=== PATIENT | female | born 1950 | race Caucasian/White ===

== ENCOUNTER 2020-03-29 12:09 | Emergency (ER) | payer BC, MEDICARE ==
--- NOTE | 2020-03-29 12:26 | ER Document Report ---
ED Medical Screen (RME) - General Chief Complaint: Lower Abdominal Pain Stated Complaint: VAGINAL PROBLEM Time Seen by Provider: 03/29/20 12:21 Notes: HPI: 69-year-old female presenting for discomfort with urination over the last 2 weeks. Had a Bactrim prescription previously from a sinus infection that she took for 7 days which alleviated some symptoms but then they came back when she stopped the antibiotic. Patient has had increasing pelvic pressure and discomfort over the last week. Patient states "I feel like there something coming out of my vagina". She went to an immediate care yesterday and was prescribed Macrobid but states that the symptoms are worse today. No fever no vomiting no vaginal discharge or bleeding PHYSICAL EXAMINATION: Very mild tenderness over the suprapubic region on palpation. exam deferred in triage. No CVA tenderness I have greeted and performed a rapid initial assessment of this patient. A comprehensive ED assessment and evaluation of the patient, analysis of test results and completion of medical decision making process will be conducted by an additional ED providers. Please note that clinical decision making for this patient was made during the 2019 pandemic of novel coronavirus which caused a significant strain on the healthcare system including at this particular facility. Criteria for admission discharge and level of care decisions as well as treatment decisions have necessarily changed - Related Data Allergies/Adverse Reactions: No Known Allergies Allergy (Verified 03/29/20 12:18) Home Medications: amitiza. advair. zyrtec. vitamins. calcium. zinc. magnesium Past Medical History - Social History Chew tobacco use (# tins/day): No Frequency of alcohol use: Occasional Drug Abuse: None Physical Exam - Vital signs Vitals: Temp Pulse Resp BP Pulse Ox 97.4 F 72 16 142/79 H 98 03/29/20 12:16 03/29/20 12:16 03/29/20 12:16 03/29/20 12:16 03/29/20 12:16 Course - Vital Signs Vital signs: Temp Pulse Resp BP Pulse Ox 97.4 F 72 16 142/79 H 98 03/29/20 12:16 03/29/20 12:16 03/29/20 12:16 03/29/20 12:16 03/29/20 12:16
[2020-03-29 12:57] LABS: ABSOLUTE LYMPHOCYTES (AUTO) 2.1 10^3/uL (0.5-4.7); ABSOLUTE MONOCYTES (AUTO) 0.4 10^3/uL (0.1-1.4); ABSOLUTE NEUT (AUTO) 6.8 10^3/uL (1.7-8.2); BASOPHILS % (AUTO) 0.2 % (0-2); EOSINOPHILS % (AUTO) 0.3 % (0-6); HEMATOCRIT 41.5 % (36.0-47.0); HEMOGLOBIN 14.1 g/dL (12.0-15.5); LYMPHOCYTES % (AUTO) 22.5 % (13-45); MEAN CORPUSCULAR HEMOGLOBIN 30.5 pg (27.0-33.4); MEAN CORPUSCULAR VOLUME 90 fl (80-97); MONOCYTES % (AUTO) 4.3 % (3-13); PLATELET COUNT 272 10^3/uL (150-450); RED BLOOD COUNT 4.63 10^6/uL (3.72-5.28); RED CELL DISTRIBUTION WIDTH 13.9 % (11.5-14.0); SEGMENTED NEUTROPHILS % (AUTO) 72.7 % (42-78); TOTAL CELLS COUNTED % (AUTO) 100 %; WHITE BLOOD COUNT 9.4 10^3/uL (4.0-10.5)
[2020-03-29 13:04] LABS: APPEARANCE,URINE CLEAR; BILIRUBIN,URINE NEGATIVE (NEGATIVE); COLOR,URINE YELLOW; GLUCOSE, URINE NEGATIVE (NEGATIVE); KETONES,URINE NEGATIVE (NEGATIVE); LEUKOCYTE ESTERASE,URINE NEGATIVE (NEGATIVE); NITRITE,URINE NEGATIVE (NEGATIVE); PROTEIN,URINE NEGATIVE (NEGATIVE); URINE SPECIFIC GRAVITY 1.011; UROBILINOGEN,URINE NEGATIVE mg/dL (<2.0)
[2020-03-29 13:20] LABS: ALBUMIN 4.5 g/dL (3.5-5.0); ALKALINE PHOSPHATASE 73 U/L (38-126); ANION GAP 5 (5-19); ASPARTATE AMINO TRANSFERASE 29 U/L (14-36); BILIRUBIN,DIRECT 0.2 mg/dL (0.0-0.4); BILIRUBIN,TOTAL 0.5 mg/dL (0.2-1.3); BLOOD UREA NITROGEN 19 mg/dL (7-20); CALCIUM 9.7 mg/dL (8.4-10.2); CARBON DIOXIDE 31 mmol/L (22-30); CHLORIDE 102 mmol/L (98-107); GLUCOSE 115 mg/dL (75-110)
--- NOTE | 2020-03-29 14:44 | RADIOLOGY REPORT (SQ) ---
EXAM DESCRIPTION: CT ABD/PELVIS WITH IV ONLY IMAGES COMPLETED DATE/TIME: 03/29/2020 11:29 am REASON FOR STUDY: abdominal pain COMPARISON: None. TECHNIQUE: CT scan of the abdomen and pelvis performed using helical scanning technique with dynamic intravenous contrast injection. No oral contrast. Images reviewed with lung, soft tissue, and bone windows. Reconstructed coronal and sagittal MPR images reviewed. Delayed images for evaluation of the urinary system also acquired. All images stored on PACS. All CT scanners at this facility use dose modulation, iterative reconstruction, and/or weight based d osing when appropriate to reduce radiation dose to as low as reasonably achievable (ALARA). [facility]: Dose Right [facility]: CareDose [facility]: Dose Right [facility]: Teradose 4D [facility]: [facility] CONTRAST TYPE AND DOSE: contrast/concentration: Isovue 350.00 mmol/ml; Total Contrast Delivered: 78. 0 ml; Total Saline Delivered: 46.0 ml RENAL FUNCTION: Creatinine 0.58 RADIATION DOSE: CT Rad equipment meets quality standard of care and radiation dose reduction techniq ues were employed. CTDIvol: 6.8 - 9.3 mGy. DLP: 838 mGy-cm.. LIMITATIONS: Artifact from left hip prosthesis obscures detail of adjacent structures. FINDINGS: LOWER CHEST: Right pericardial cystic structure is partially imaged and likely a benign de velopmental finding. This measures 4.7 x 4.5 cm. If indicated, dedicated imaging of the chest could be performed for complete assessment. Some mild basilar atelectasis or scarring. LIVER: Multiple hypodense liver lesions are incompletely characterized but likely represent benign cy sts. SPLEEN: Normal size. No focal lesions. PANCREAS: No masses. No significant calcifications. No adjacent inflammation or peripancreatic fluid collections. Pancreatic duct not dilated. GALLBLADDER: Surgically absent. ADRENAL GLANDS: No significant masses or asymmetry. RIGHT KIDNEY AND URETER: No solid masses. No significant calcifications. No hydronephrosis or hyd roureter. LEFT KIDNEY AND URETER: No solid masses. No significant calcifications. No hydronephrosis or hydr oureter. AORTA AND VESSELS: No aneurysm. No dissection. Renal arteries, SMA, celiac without stenosis. RETROPERITONEUM: No retroperitoneal adenopathy, hemorrhage or masses. BOWEL AND PERITONEAL CAVITY: No masses or inflammatory changes. No free fluid or peritoneal masses. Colon diverticulosis. No bowel dilatation. Moderate stool in the colon. APPENDIX: Surgically absent. PELVIS: Portions of the pelvis are obscured due to artifact from left hip prosthesis. No gross abnor mality. ABDOMINAL WALL: No masses. No hernias. BONES: Status post left hip arthroplasty. No destructive bone lesions. OTHER: No other significant finding. IMPRESSION: 1. Portions of the pelvis are partially obscured due to artifact from left hip prosthes is. No acute abnormality identified. 2. Moderate stool in the colon. No bowel obstruction. 3. Colon diverticulosis. 4. Partially visualized right pericardial cyst. TECHNICAL DOCUMENTATION: JOB ID: [id number] Quality ID # [id number]: Final reports with documentation of one or more dose reduction techniques (e.g., Au tomated exposure control, adjustment of the mA and/or kV according to patient size, use of iterative reconstruction technique) 2010 [employer]- All Rights Reserved Reading location - IP/workstation name: [email or web address]
[2020-03-29] MEDS ORDERED: KETOROLAC TROMETHAMINE INJ/PF 30 MG/1 ML SDV IV ONE (16:29)
[2020-03-29 16:33] LABS: BACTERIA (WET MOUNT) 3+ BACTERIA SEEN; EPITHELIALS (WET MOUNT) 3+ EPITHELIALS SEEN; RBCS (WET MOUNT) NO RBCS SEEN; T.VAGINALIS (WET MOUNT) NO TRICHOMONAS SEEN; WBCS (WET MOUNT) NO WBCS SEEN; YEAST (WET MOUNT) NO YEAST SEEN
--- NOTE | 2020-03-29 17:28 | ER Document Report ---
ED GI/ - General Chief Complaint: Lower Abdominal Pain Stated Complaint: VAGINAL PROBLEM Time Seen by Provider: 03/29/20 12:21 Primary Care Provider: CLIF COLEMAN MD [ACTIVE STAFF] - Follow up as needed - HPI Notes: 03/29/20 18:44 69-year-old female presents to ED for evaluation of lower pelvic discomfort for the last several days. Patient states that she has been seen at urgent care and was given a course of antibiotics for management. Reports that she was recently changed over to Macrobid and this did not appear to improve her symptoms. Notes that she feels as though she has increased pelvic pressure when she urinates as well as moves her bowels. She states it feels irritated in this region. Denies any nausea or vomiting. Denies abdominal pain. Denies fever or chills. Denies pain into the. Patient does have some white vaginal discharge. - Related Data Allergies/Adverse Reactions: No Known Allergies Allergy (Verified 03/29/20 12:18) Home Medications: amitiza. advair. zyrtec. vitamins. calcium. zinc. magnesium Past Medical History - Social History Smoking Status: Current Some Day Smoker Chew tobacco use (# tins/day): No Frequency of alcohol use: Occasional Drug Abuse: None Family History: None Patient has homicidal ideation: No Past Surgical History: Reports: Hx Section Review of Systems - Review of Systems Notes: Constitutional: Negative for fever. HENT: Negative for sore throat. Eyes: Negative for visual changes. Cardiovascular: Negative for chest pain. Respiratory: Negative for shortness of breath. Gastrointestinal: Negative for abdominal pain, vomiting or diarrhea. Genitourinary: Negative for dysuria. + for pelvic pain. Musculoskeletal: Negative for back pain. Skin: Negative for rash. Neurological: Negative for headaches, weakness or numbness. 10 point ROS negative except as marked above and in HPI. Physical Exam - Vital signs Vitals: Temp Pulse Resp BP Pulse Ox 97.4 F 72 16 142/79 H 98 03/29/20 12:16 03/29/20 12:16 03/29/20 12:16 03/29/20 12:16 03/29/20 12:16 General: No acute distress. Alert and oriented x3. Sitting comfortably in a stretcher. Skin: No jaundice, pallor, petechiae, or rashes. Warm and dry. Heart: Regular rate and rhythm. S1,S2. No murmurs, rubs, or gallops. Lungs: Clear to ausculation bilaterally. No wheezes, rhonchi, rales. Equal chest expansion. No retractions. Abdomen: Soft, nontender to palpation, nondistended. Positive bowel sounds in all 4 quadrants. No masses. No CVA tenderness bilaterally. Genitourinary performed with female director speech present: External vagina without rashes or lesion. Speculum was inserted, cultures were taken. Cervical os closed without lesion with mild erythema and discharge. Cervix located in distal canal of vagina. No blood or masses in the vaginal vault. No cervical motion tenderness. No adnexal tenderness or masses. Back: No midline spinal TTP. No paraspinous muscular TTP. Neuro: GCS 15. Moving all extremities without discomfort. Psych: Mood and affect appropriate. Course - Re-evaluation Re-evalutation: 03/29/20 19:03 69-year-old female presents to ED for evaluation of pelvic pain. Patient was evaluated with CBC, CMP, UA, lipase, and WET prep. Lab work was found to be notable for bacterial vaginosis on wet prep. Patient further evaluated with CT scan of the abdomen and pelvis which was unremarkable. On pelvic exam, patient does have her cervix in the distal vaginal canal. Concern for uterine prolapse. To consult to DIABETES TRAINER and spoke with Dr. Coleman who recommends patient be seen as an outpatient in the clinic this week. I did also discuss with patient that I will start her on a course of Flagyl. Patient treated symptomatically with pain management. Patient understands to follow up with primary care physician as well as DIABETES TRAINER. Patient understands indications to return to the ER. Patient is agreeable with this plan. 03/29/20 19:04 - Vital Signs Vital signs: Temp Pulse Resp BP Pulse Ox 97.3 F 67 18 153/93 H 97 03/29/20 18:01 03/29/20 17:51 03/29/20 17:51 03/29/20 17:51 03/29/20 17:51 - Laboratory Results Result Diagrams: 03/29/20 12:27 03/29/20 12:27 Laboratory Results Interpreted: 03/29/20 12:27 Carbon Dioxide 31 H Glucose 115 H Critical Laboratory Results Reviewed: No Critical Results - Radiology Results Critical Radiology Results Reviewed: No Critical Results Discharge - Discharge Clinical Impression: Bacterial vaginosis, Uterine prolapse without vaginal wall prolapse Condition: Stable Disposition: HOME, SELF-CARE Prescriptions: Ketorolac Tromethamine [Toradol 10 mg Tablet] 10 mg PO Q8HP PRN #15 tablet PRN Reason: Referrals: CLIF COLEMAN MD [ACTIVE STAFF] - Follow up as needed
[2020-03-29 18:01] VITALS: BP 153/93
== END 2020-03-29 17:55 | disposition home or self-care (01) ==
LOC: ER 12:09
DX: N76.0 Acute vaginitis (principal); B96.89 Other specified bacterial agents as the cause of diseases classified elsewhere; N81.4 Uterovaginal prolapse, unspecified; Q24.8 Other specified congenital malformations of heart; K57.30 Diverticulosis of large intestine without perforation or abscess without bleeding; F17.200 Nicotine dependence, unspecified, uncomplicated; Z79.899 Other long term (current) drug therapy; Z79.51 Long term (current) use of inhaled steroids
CPT/HCPCS: 99285; 96374; 36415; 87086; 87210; 85025; 80053; 81001; 74177; J1885

== ENCOUNTER 2020-04-02 10:15 | Emergency (ER) | payer MEDICARE ==
[2020-04-02 11:39] LABS: APPEARANCE,URINE CLEAR; BILIRUBIN,URINE NEGATIVE (NEGATIVE); COLOR,URINE STRAW; GLUCOSE, URINE NEGATIVE (NEGATIVE); KETONES,URINE NEGATIVE (NEGATIVE); LEUKOCYTE ESTERASE,URINE NEGATIVE (NEGATIVE); NITRITE,URINE NEGATIVE (NEGATIVE); PROTEIN,URINE NEGATIVE (NEGATIVE); URINE SPECIFIC GRAVITY 1.005; UROBILINOGEN,URINE NEGATIVE mg/dL (<2.0)
[2020-04-02] MEDS ORDERED: CEFTRIAXONE 1 GM/D5W RTU 1 GM/50 ML RTUPB IV ONE (12:26)
[2020-04-02] MEDS ORDERED: AZITHROMYCIN INJ 500 MG VIAL IV ONE (12:26)
[2020-04-02] MEDS ORDERED: NORMAL SALINE 1000 ML 1,000 ML IV ONE (12:27)
[2020-04-02 12:38] VITALS: BP 138/87
--- NOTE | 2020-04-02 13:41 | ER Document Report ---
Entered by MERRITT PETERSON SCRIBE 04/02/20 1057 Acting as scribe for:HALI KELLEY MD ED GI/ - General Chief Complaint: Urinary Problem Stated Complaint: URINARY ISSUE Mode of Arrival: Ambulatory Information source: Patient Notes: This 69 year old female patient presents to the ED today with complaints of acute urinary retention that started this morning. Patient states that she has b een dealing with urinary symptoms including urinary urgency and frequency for the past x2.5 weeks and has been tested for an UTI x3 times with negative results. She now reports burning with urination, urethral pain, and an inability to completely empty her bladder. She notes associated pelvic pain. She was seen her on 03/29 and diagnosed with bacterial vaginosis and uterine prolapse. She states that she followed up with Dr. Jerez at [facility] on 03/30, had a pelvic exam, and was told that it was her bladder that was enlarged and that she did not have uterine prolapse. She was started on a course of Levaquin, currently on day four. She reports no change with the antibiotics. She is also pending a referral to urology. Denies fever, chills, abdominal distension, or flank pain. - Related Data Allergies/Adverse Reactions: No Known Allergies Allergy (Verified 04/02/20 11:01) Past Medical History - General Information source: Patient - Social History Smoking Status: Unknown if Ever Smoked Smoking Education Provided: No Lives with: Spouse/Significant other Family History: Reviewed & Not Pertinent Past Surgical History: Reports: Hx Section - x2, Hx Cholecystectomy Review of Systems - Review of Systems Constitutional: See HPI. denies: Chills, Fever EENT: No symptoms reported Cardiovascular: No symptoms reported Respiratory: No symptoms reported Gastrointestinal: See HPI, Abdominal pain. denies: Abdomen distended Genitourinary: See HPI, Burning, Pain, Urgency, Retention. denies: Flank pain Female Genitourinary: No symptoms reported Musculoskeletal: No symptoms reported Skin: No symptoms reported Hematologic/Lymphatic: No symptoms reported Neurological/Psychological: No symptoms reported -: Yes All other systems reviewed and negative Physical Exam - Vital signs Vitals: Temp Pulse Resp BP Pulse Ox 97.4 F 62 18 147/89 H 99 04/02/20 10:34 04/02/20 10:34 04/02/20 10:34 04/02/20 10:34 04/02/20 10:34 - General General appearance: Alert In distress: None - HEENT Head: Normocephalic, Atraumatic Eyes: Normal Extraocular movements intact: Yes Pupils: PERRL Neck: Normal, Supple - Respiratory Respiratory status: No respiratory distress Chest status: Nontender Breath sounds: Normal Chest palpation: Normal - Cardiovascular Rhythm: Regular Heart sounds: Normal auscultation Murmur: No - Abdominal Inspection: Normal Distension: No distension Bowel sounds: Normal Tenderness: Tender - Suprapubic and pelvic tenderness to palpation. No: Rebound Organomegaly: No organomegaly - Genitourinary Notes: Deferred per patient - Back Back: Normal, Nontender. No: CVA tenderness - Extremities General upper extremity: Normal inspection General lower extremity: Normal inspection. No: Edema - Neurological Neuro grossly intact: Yes Orientation: AAOx4 [place] Coma Scale Eye Opening: Spontaneous [place] Coma Scale Verbal: Oriented [place] Coma Scale Motor: Obeys Commands Ky[place] Coma Scale Total: 15 - Psychological Associated symptoms: Normal affect, Normal mood - Skin Skin Temperature: Warm Skin Moisture: Dry Skin Color: Normal Course - Re-evaluation Re-evalutation: 04/02/20 13:31 Patient voided 200 mL of urine prior to a bladder scan. Bladder scan performed and shows patient has retention of 200 mL of urine in her bladder. Patient presents today after being in the emergency department on March 29, followed up with within days and now returns to the emergency department today because she still has urethral discomfort with painful voiding as well as a burning pain and retention of urine with a full bladder. Patient is now voiding however she still voids incompletely of emptying her bladder. Patient is being referred to a urologist by Dr. Jerez and patient learned today while in the department that she has an appointment that is going to be made sometime in the next week or 2 with urologist. Discussed with patient that I ordered labs as well as urinalysis repeat as well as a Chlamydia gonorrhea probe PCR of the urine. As well as suggested that an exam of her urethra needs to be done to determine what it appears to be in its anatomy if it swollen distorted, or blocked or have any kind of signs of infection. Recommended that the nurse could examine that when she does the urethral swab and that was obtained. Per nurse report to me patient does have a reddened slightly swollen urethra with no exudate or any rash present. Patient elected not to have any lab work done today as well as IV fluids IV antibiotics states she did rather take medications to go home with and follow-up with your urology appointment which is hopefully within the next 1 to 2 weeks. Discussed case with who is present in the ED and as we discussed the history the recommendation by him is to discharge patient home and she can follow-up with urology meanwhile consider Flagyl inasmuch as she has had a trichomonas infection years ago where she and her transferred it back and forth until it was determined what the problem was. - Vital Signs Vital signs: Temp Pulse Resp BP Pulse Ox 97.8 F 67 17 138/87 H 99 04/02/20 12:37 04/02/20 12:37 04/02/20 12:37 04/02/20 12:37 04/02/20 12:37 04/02/20 13:39 Vital signs stable. - Laboratory Results Laboratory Results Interpreted: Labs- Entire Visit 04/02/20 11:17 Urine Color STRAW Urine Appearance CLEAR Urine pH 7.0 Ur Specific [place] 1.005 Urine Protein NEGATIVE Urine Glucose (UA) NEGATIVE Urine Ketones NEGATIVE Urine Blood NEGATIVE Urine Nitrite NEGATIVE Urine Bilirubin NEGATIVE Urine Urobilinogen NEGATIVE Ur Leukocyte Esterase NEGATIVE Urine RBC (Auto) 0 Squamous Epi Cells Auto 1 Urine Mucus (Auto) RARE Urine Ascorbic Acid NEGATIVE Critical Laboratory Results Reviewed: No Critical Results - Radiology Results Critical Radiology Results Reviewed: No Critical Results - Consults Dr. Mckeon, IMPLEMENTATION MANAGER Time consulted: 13:02 Discharge - Discharge Clinical Impression: BV (bacterial vaginosis), Urethritis, nonspecific Condition: Stable Disposition: HOME, SELF-CARE Additional Instructions: Vaginosis, Bacterial Your exam shows you have bacterial vaginosis. This condition is due to an overgrowth of bacteria in the vagina. Symptoms may include vaginal itching or pain, a smelly discharge, and sometimes burning with urination. Normally this is not transmitted by sexual contact. Vaginosis can be treated with oral or topical antibiotics. Metronidazole (Flagyl) pills are usually effective. Topical vaginal creams include Cleocin and Metro-Gel. You should avoid sexual contact until your symptoms are all better. Call the doctor if you develop pelvic pain, fever, or problems with urination, or if you don't improve as expected. Urethritis You have urethritis, an infection of the urethra. The usual symptoms are pain on urination and discharge. The infection is often caused by gonorrhea or chlamydia. Treatment is antibiotics. In addition, any sexual contacts should be evaluated by a physician as soon as possible. As this infection can be transmitted sexually, refrain from sexual activity until the infection is confirmed as healed by your physician. If gonorrhea or chlamydia is found on culture, the health department must be notified. Call the doctor at once if you develop difficulty passing your urine, high fever, rash, joint swelling, or other new symptoms. Recommend you follow-up with your urology appointment for further evaluation of your urethritis. Also please note that a test that has been sent to the lab and this not returned yet prior to your discharge for evaluation for infection around the urethra. We will call with those results once they have been resulted. Prescriptions: Metronidazole [Flagyl 500 mg Tablet] 500 mg PO BID #8 tablet Referrals: JESSICA JEREZ MD [ACTIVE STAFF] - Follow up as needed I personally performed the services described in the documentation, reviewed and edited the documentation which was dictated to the scribe in my presence, and it accurately records my words and actions.
[2020-04-02 13:58] LABS: CHLAM PCR NOT DETECTED (NOT DETECT)
== END 2020-04-02 14:02 | disposition home or self-care (01) ==
LOC: ER 10:15
DX: N76.0 Acute vaginitis (principal); B96.89 Other specified bacterial agents as the cause of diseases classified elsewhere; N34.1 Nonspecific urethritis; R39.198 Other difficulties with micturition; R33.9 Retention of urine, unspecified; R39.15 Urgency of urination; R35.0 Frequency of micturition; R30.9 Painful micturition, unspecified; R10.2 Pelvic and perineal pain; R10.9 Unspecified abdominal pain; Z79.899 Other long term (current) drug therapy
CPT/HCPCS: 81001; 87070; 87205; 87491; 87591; 99283